=== PATIENT | female | born 1945 | race Caucasian/White ===

== ENCOUNTER 2018-01-11 09:11 | Emergency (ER) | payer MEDICARE ==
[~2018-01-11] VITALS: Ht 167.6 cm; Wt 131.4 kg
[~2018-01-11 09:11] MED LIST: AMLO10TA PO; ATOR-2 PO; CHOL100046 PO; IRON18TA PO; LISI10TA4 PO; METF500T7 PO; MULT-38 PO; [UNRECOGNIZED DRUG - OTHER] PO
[2018-01-11 09:54] LABS: BASOPHILS % (AUTO) 0.1 % (0-1); EOSINOPHILS # (AUTO) 0.1 X10'3 (0-0.9); EOSINOPHILS % (AUTO) 1.1 % (0-6); HEMATOCRIT 35.5 % (35.0-45.0); HEMOGLOBIN 11.8 g/dl (12.0-16.0); LYMPHOCYTES # (AUTO) 1.5 X10'3 (1.1-4.8); MEAN CORPUSCULAR HEMOGLOBIN 30.6 PG (27.0-31.0); MEAN CORPUSCULAR HGB CONC 33.2 % (33.0-36.5); MEAN CORPUSCULAR VOLUME 92.4 FL (78-98); MEAN PLATELET VOLUME 8.8 FL (7.4-10.4); MONOCYTES # (AUTO) 0.3 X10'3 (0-0.9); MONOCYTES % (AUTO) 2.3 % (2-12); NEUTROPHILS # (AUTO) 9.5 X10'3 (1.8-7.7); NEUTROPHILS % (AUTO) 83.5 % (42-75); PLATELET COUNT 216 X10'3 (140-440); RED BLOOD COUNT 3.85 X10'6 (4.20-5.60); WHITE BLOOD COUNT 11.3 X10'3 (4.5-11.0)
[2018-01-11 10:00] LABS: INR 1.4 INR; PROTHROMBIN TIME 14.4 SECONDS (9.0-12.0)
[2018-01-11 10:08] LABS: ALANINE AMINOTRANSFERASE 19 U/L (12-78); ALBUMIN 3.4 G/DL (3.4-5.0); ALBUMIN/GLOBULIN RATIO 0.9 (1.1-1.5); ALKALINE PHOSPHATASE 72 IU/L (46-116); ANION GAP 12 (8-16); ASPARTATE AMINO TRANSFERASE 17 U/L (10-37); BILIRUBIN,TOTAL 0.3 MG/DL (0.1-1.0); BLOOD UREA NITROGEN 15 MG/DL (7-18); BUN/CREATININE RATIO 11.8 (6.6-38.0); CALCIUM 9.3 MG/DL (8.5-10.1); CHLORIDE 106 MMOL/L (99-107); CREATININE 1.27 MG/DL (0.40-0.90); GLUCOSE 122 MG/DL (70-104); POTASSIUM 4.5 MMOL/L (3.5-5.1); SODIUM 143 MMOL/L (135-145); TOTAL CARBON DIOXIDE 25.4 MMOL/L (24-32); TOTAL PROTEIN 7.3 G/DL (6.4-8.2); eGFR 41 ML/MIN
[2018-01-11] MEDS ORDERED: ondansetron 4mg rapidly disintigrating tab PO ONE (10:20)
[2018-01-11 10:23] VITALS: BP 155/69
[2018-01-11] MEDS ORDERED: gabapentin 100mg capsule PO ONE (10:30)
[2018-01-11] MEDS ORDERED: GABA-530 PO (10:35)
== END 2018-01-11 11:33 | disposition home or self-care (01) ==
LOC: ER 09:11
DX: M54.6 Pain in thoracic spine (principal); F11.23 Opioid dependence with withdrawal; I11.0 Hypertensive heart disease with heart failure; I50.9 Heart failure, unspecified; J44.9 Chronic obstructive pulmonary disease, unspecified; E11.9 Type 2 diabetes mellitus without complications; Z88.8 Allergy status to other drugs, medicaments and biological substances; Z79.84 Long term (current) use of oral hypoglycemic drugs; Z79.899 Other long term (current) drug therapy
CPT/HCPCS: 36415; 80053; 85025; 85610; 93005; 99285

== ENCOUNTER → 2019-07-16 | Outpatient (CLI) | payer MEDICARE ==
[~2019-07-16] VITALS: Ht 165.1 cm; Wt 125.2 kg
[~2019-07-16] MED LIST changes: +GABA-530 PO; +METF500T20 PO; -METF500T7 PO; +albuterol 2.5 MG/3 ML nebule NEB PRN
== END | disposition home or self-care (01) ==
LOC: RT 09:54
PROVIDERS: ATTEND Internal Medicine Cardiovascular Disease
DX: R06.02 Shortness of breath (principal); I11.0 Hypertensive heart disease with heart failure; I50.9 Heart failure, unspecified; J44.9 Chronic obstructive pulmonary disease, unspecified; E11.9 Type 2 diabetes mellitus without complications; Z88.2 Allergy status to sulfonamides; Z87.891 Personal history of nicotine dependence
CPT/HCPCS: 94010; 94727; 94729; 94760

== ENCOUNTER 2019-07-20 10:17 | Day surgery (SDC) | payer MEDICARE ==
[2019-07-15 12:19] LABS: BASOPHILS # (AUTO) 0.1 X10'3 (0-0.2); BASOPHILS % (AUTO) 0.7 % (0-1); EOSINOPHILS # (AUTO) 0.3 X10'3 (0-0.9); EOSINOPHILS % (AUTO) 2.9 % (0-6); HEMATOCRIT 30.2 % (35.0-45.0); HEMOGLOBIN 10.2 g/dl (12.0-16.0); LYMPHOCYTES # (AUTO) 1.7 X10'3 (1.1-4.8); LYMPHOCYTES % (AUTO) 16.9 % (21-51); MEAN CORPUSCULAR HEMOGLOBIN 29.7 PG (27.0-31.0); MEAN CORPUSCULAR HGB CONC 33.7 g/dL (33.0-36.5); MEAN PLATELET VOLUME 8.4 FL (7.4-10.4); MONOCYTES # (AUTO) 0.6 X10'3 (0-0.9); MONOCYTES % (AUTO) 5.8 % (2-12); NEUTROPHILS # (AUTO) 7.2 X10'3 (1.8-7.7); NEUTROPHILS % (AUTO) 73.7 % (42-75); PLATELET COUNT 247 X10'3 (140-440); RED BLOOD COUNT 3.43 X10'6 (4.20-5.60); RED CELL DISTRIBUTION WIDTH 16.3 % (11.5-14.5); WHITE BLOOD COUNT 9.8 X10'3 (4.5-11.0)
[2019-07-15 12:27] LABS: ANION GAP 3 (8-16); BLOOD UREA NITROGEN 22 MG/DL (7-18); BUN/CREATININE RATIO 16.9 (6.6-38.0); CALCIUM 8.9 MG/DL (8.5-10.1); CHLORIDE 108 MMOL/L (99-107); GLUCOSE 106 MG/DL (70-104); POTASSIUM 4.7 MMOL/L (3.5-5.1); SODIUM 141 MMOL/L (135-145); TOTAL CARBON DIOXIDE 29.6 MMOL/L (24-32); eGFR 40 ML/MIN
[2019-07-15 12:32] LABS: PARTIAL THROMBOPLASTIN TIME 43 SECONDS (22-32)
[~2019-07-20] VITALS: Ht 160 cm; Wt 126.5 kg
[2019-07-20] VITALS (9 sets, daily range): BP systolic 137–166; BP diastolic 54–79
[~2019-07-20 10:17] MED LIST changes: -albuterol 2.5 MG/3 ML nebule NEB PRN
[2019-07-20] MEDS ORDERED: diphenhydrAMINE 25mg capsule PO PRN (11:10)
[2019-07-20] MEDS ORDERED: normal saline 1,000 ML IV SCH (11:10)
[2019-07-20] MEDS ORDERED: LORazepam 0.5 MG tablet PO PRN (11:10)
[2019-07-20] MEDS ORDERED: FURO40TA4 PO (11:49)
[2019-07-20] MEDS ORDERED: HYDR-4353 PO (11:49)
[2019-07-20] MEDS ORDERED: WARF10TA50 PO (11:49)
[2019-07-20] MEDS ORDERED: GABA-532 PO (11:49)
[2019-07-20] MEDS ORDERED: DOCU-261 PO (11:49)
[2019-07-20] MEDS ORDERED: OMEP40CA13 PO (11:49)
[2019-07-20] MEDS ORDERED: FERR-119 PO (11:49)
[2019-07-20] MEDS ORDERED: WARF5TAB PO (11:49)
[2019-07-20] MEDS ORDERED: INSU300I (11:49)
[2019-07-20] MEDS ORDERED: POTA20TA10 PO (11:49)
[2019-07-20] MEDS ORDERED: ENOX80SY7 SUBCUT (11:49)
[2019-07-20] MEDS ORDERED: GLIP5TAB13 PO (11:49)
[2019-07-20] MEDS ORDERED: fentaNYL/PF 50MCG/1 ML 2ML syringe ONE (12:17)
[2019-07-20] MEDS ORDERED: LIDOcaine 1% (10mg/ml)w/preservative injection 20ml MDV ONE (12:17)
[2019-07-20] MEDS ORDERED: midazolam 2 mg/2 ml injection ONE (12:17)
[2019-07-20] MEDS ORDERED: iohexol 350MG/ML 100ml bottle IV ONE (12:17)
[2019-07-20] MEDS ORDERED: HYDROcodone/acetaminophen 10/325mg tab PO PRN (13:35)
[2019-07-20] MEDS ORDERED: HYDROcodone/acetaminophen 5mg/325mg tablet PO PRN (13:35)
[2019-07-20] MEDS ORDERED: OXAZEpam 15mg capsule PO PRN (13:35)
[2019-07-20] MEDS ORDERED: proCHLORperazine 10 MG/2 ml inj IV PRN (13:35)
[2019-07-20] MEDS ORDERED: ondansetron/PF 4mg/2ml inj IV PRN (13:35)
== END 2019-07-20 15:35 | disposition home or self-care (01) ==
LOC: SSTAY O 10:17
PROVIDERS: ATTEND Internal Medicine Interventional Cardiology
DX: I35.0 Nonrheumatic aortic (valve) stenosis (principal); I25.10 Atherosclerotic heart disease of native coronary artery without angina pectoris; E11.22 Type 2 diabetes mellitus with diabetic chronic kidney disease; I13.0 Hypertensive heart and chronic kidney disease with heart failure and stage 1 through stage 4 chronic kidney disease, or unspecified chronic kidney disease; I50.9 Heart failure, unspecified; N18.9 Chronic kidney disease, unspecified; Z79.899 Other long term (current) drug therapy; Z79.84 Long term (current) use of oral hypoglycemic drugs; Z79.01 Long term (current) use of anticoagulants; Z88.8 Allergy status to other drugs, medicaments and biological substances
CPT/HCPCS: 36415; 80048; 82948; 85025; 85610; 85730; 93005; 93458; 99152; 99153; C1760; C1769; J1644; J2001; J2250; J3010; J7030; Q0163; Q9967; A4620; A6258

== ENCOUNTER 2019-10-09 14:20 | Inpatient (IN) | payer BC, MEDICAID ==
[~2019-10-09] VITALS: Ht 157.5 cm; Wt 125.0 kg
[~2019-10-09 14:20] MED LIST changes: +DOCU-261 PO; +ENOX80SY7 SUBCUT; +FERR-119 PO; +FURO40TA4 PO; -GABA-530 PO; +GABA-532 PO; +GLIP5TAB13 PO; +HYDR-4353 PO; +INSU300I; -IRON18TA PO; +OMEP40CA13 PO; +POTA20TA10 PO; +WARF10TA50 PO; +WARF5TAB PO
[2019-10-09] MEDS ORDERED: acetaminophen 325mg tablet PO STA (14:41)
[2019-10-09 15:13] LABS: BASOPHILS % (AUTO) 0.2 % (0-1); EOSINOPHILS % (AUTO) 0.1 % (0-6); HEMATOCRIT 27.8 % (35.0-45.0); HEMOGLOBIN 9.2 g/dl (12.0-16.0); LYMPHOCYTES # (AUTO) 0.5 X10'3 (1.1-4.8); LYMPHOCYTES % (AUTO) 4.3 % (21-51); MEAN CORPUSCULAR HEMOGLOBIN 29.8 PG (27.0-31.0); MEAN CORPUSCULAR VOLUME 90.5 FL (78-98); MEAN PLATELET VOLUME 8.4 FL (7.4-10.4); MONOCYTES # (AUTO) 0.4 X10'3 (0-0.9); MONOCYTES % (AUTO) 3.3 % (2-12); NEUTROPHILS # (AUTO) 11.1 X10'3 (1.8-7.7); NEUTROPHILS % (AUTO) 92.1 % (42-75); PLATELET COUNT 205 X10'3 (140-440); RED BLOOD COUNT 3.07 X10'6 (4.20-5.60); RED CELL DISTRIBUTION WIDTH 16.6 % (11.5-14.5); WHITE BLOOD COUNT 12.1 X10'3 (4.5-11.0)
[2019-10-09] MEDS ORDERED: normal saline 1000ML IV soln IVB ONE (15:20)
[2019-10-09] MEDS ORDERED: levoFLOXACIN-Levaquin 750MG/D5 150 ML IV ONE (15:20)
[2019-10-09 15:28] LABS: ALANINE AMINOTRANSFERASE 18 U/L (12-78); ALBUMIN 2.6 G/DL (3.4-5.0); ALBUMIN/GLOBULIN RATIO 0.6 (1.1-1.5); ALKALINE PHOSPHATASE 95 IU/L (46-116); ANION GAP 4 (8-16); ASPARTATE AMINO TRANSFERASE 23 U/L (10-37); BILIRUBIN,TOTAL 0.7 MG/DL (0.1-1.0); BLOOD UREA NITROGEN 26 MG/DL (7-18); BUN/CREATININE RATIO 15.9 (6.6-38.0); CHLORIDE 101 MMOL/L (99-107); CREATININE 1.64 MG/DL (0.40-0.90); GLUCOSE 130 MG/DL (70-104); MAGNESIUM 1.8 MG/DL (1.5-2.4); POTASSIUM 4.8 MMOL/L (3.5-5.1); SODIUM 136 MMOL/L (135-145); TOTAL PROTEIN 6.8 G/DL (6.4-8.2); eGFR 31 ML/MIN
[2019-10-09 16:01] LABS: PARTIAL THROMBOPLASTIN TIME 38 SECONDS (22-32)
[2019-10-09 16:43] LABS: CLARITY,URINE SLIGHTLY CLOUDY (Clear); COLOR,URINE YELLOW (Yellow); GLUCOSE, URINE NEGATIVE (Neg); KETONES,URINE NEGATIVE (Neg); LEUKOCYTE ESTERASE ,URINE NEGATIVE (Neg); NITRITES, URINE NEGATIVE (Neg); OCCULT BLOOD,URINE LARGE (Neg); PH,URINE 6.5 (4.8-8.0); PROTEIN,URINE 100 mg/dl (Neg); UA COLLECTION TYPE VOIDED
--- NOTE | 2019-10-09 16:43 | NUR ---
DR. LINDSEY CALLED PT'S SON AND TOLD HIM WE WERE TESTING FOR THE COVID 19 AND TO GO HOME AND SELF QUARANTINE UNTIL HER COVID 19 TEST CAME BACK. HE ALSO TOLD HIM SHE WOULD NOT BE ALLOWED A VISITOR WHILE WE WATED FOR TEST.
--- NOTE | 2019-10-09 16:46 | NUR ---
SON'S PHONE NUMBER IS [phone]
[2019-10-09 16:50] LABS: SQUAMOUS EPITHELIAL CELL,UR MODERATE /LPF (FEW)
[2019-10-09 16:51] LABS: RBC,URINE TNTC /HPF (0-2)
[2019-10-09 16:53] LABS: BACTERIA,URINE FEW /HPF (Neg); WBC,URINE 0-4 /HPF (0-4)
[2019-10-09] MEDS ORDERED: potassium CL 10mEq/100ml bag 100 ML IV PRN ×2 (17:10)
[2019-10-09] MEDS ORDERED: potassium Cl 20 mEq SR tablet PO PRN ×2 (17:10)
[2019-10-09] MEDS ORDERED: morphine 2 MG/ML inj. syringe IV PRN (17:10)
[2019-10-09] MEDS ORDERED: docusate sod 100mg capsule PO PRN (17:10)
[2019-10-09] MEDS ORDERED: magnesium Cl slow-release 64mg tablet PO PRN (17:10)
[2019-10-09] MEDS ORDERED: acetaminophen 325mg tablet PO PRN ×2 (17:10)
[2019-10-09] MEDS ORDERED: magnesium 4gm in 100ml NS 100 ML IV PRN (17:10)
[2019-10-09] MEDS ORDERED: magnesium 2GM in 50ml NS 50 ML IV PRN (17:10)
[2019-10-09] MEDS ORDERED: dextrose ORAL solution 15 GM/59 ML bottle PO PRN ×2 (17:30)
[2019-10-09] MEDS ORDERED: MESSAGE TO PHARMACY PO ONE (17:30)
[2019-10-09] MEDS ORDERED: dextrose 50%-water 50ml dispensing syringe IV PRN ×2 (17:30)
[2019-10-09] MEDS ORDERED: glucagon, human recombinant 1mg kit SUBCUT PRN (17:30)
[2019-10-09] MEDS ORDERED: albuterol 2.5 MG/3 ML nebule NEB PRN (17:35)
[2019-10-09] MEDS ORDERED: FERR-119 PO (18:29)
[2019-10-09] MEDS ORDERED: LISI-600 PO (18:29)
[2019-10-09] MEDS ORDERED: DILT240C52 PO (18:29)
--- NOTE | 2019-10-09 18:32 | NUR ---
Three are some inconsistency to pt's med list compared to what she has picked up at pharmacy. Will call son to verify changes.
[2019-10-09] MEDS ORDERED: WARF10TA50 PO (18:41)
--- NOTE | 2019-10-09 18:45 | NUR ---
Received report from Gladys SHULTZ RN. had the oportunity to ask questions. pt is R/O covid 19 and we will be using full airborne precautions. vitals are stable.
[2019-10-09] MEDS: normal saline 1000ml 1,000 ML IV SCH (19:00)
[2019-10-09 19:30] VITALS: BP 163/67
[2019-10-09] MEDS: K and/or MAG REPLACEMENT MC SCH (20:00)
[2019-10-09] MEDS: HYDROcodone/acetaminophen 5mg/325mg tablet PO PRN (20:00)
[2019-10-09] MEDS: heparin, porcine 5000 units/ml vial SQ SCH (20:01)
[2019-10-09] MEDS: ondansetron/PF 4mg/2ml inj IV PRN (20:03)
[2019-10-09] MEDS ORDERED: temazepam 15mg capsule PO PRN (21:00)
[2019-10-09] MEDS: insulin glargine (Lantus) pen - multi-dose SQ SCH (21:00)
--- NOTE | 2019-10-09 21:58 | NUR ---
NS HELD pt has a Hx of CHF, notified MD Zee to question 100ml/hr NS for this pt with Hx of CHF. agrees that NS would be illadvised. ROMANA held.
[2019-10-09 22:00] VITALS: BP 163/68
[2019-10-10] MEDS ORDERED: metoprolol tartrate 50mg tablet PO ONE (01:00)
[2019-10-10] MEDS ORDERED: metoprolol tartrate 1mg/ml inj IV ONE (01:00)
--- NOTE | 2019-10-10 01:54 | NUR ---
Called by Jaison CHILD, to trouble shoot pt's O2 and desaturations. RN stated the pt did have decreased wheezing and was agreeable to give pt svn, per new policy regarding COVID 19 airborne precautions. Jaison CHILD instructed on how to administer svn, svn set up with filter by RT. Addendum: 10/10/19 at 0157 by Cherrie Freeman RT Amended: Links added.
[2019-10-10 02:00] VITALS: BP 172/72
[2019-10-10] MEDS: normal saline 1000ml 1,000 ML IV SCH ×2 (03:09→15:08)
[2019-10-10] MEDS: ondansetron/PF 4mg/2ml inj IV PRN ×2 (03:41→15:06)
[2019-10-10 06:00] VITALS: BP 136/100
[2019-10-10 06:14] LABS: BASOPHILS % (AUTO) 0.2 % (0-1); EOSINOPHILS % (AUTO) 0 % (0-6); MONOCYTES # (AUTO) 0.5 X10'3 (0-0.9); NEUTROPHILS % (AUTO) 91.3 % (42-75)
[2019-10-10 06:16] LABS: HEMATOCRIT 29.6 % (35.0-45.0); HEMOGLOBIN 9.7 g/dl (12.0-16.0); LYMPHOCYTES # (AUTO) 0.7 X10'3 (1.1-4.8); LYMPHOCYTES % (AUTO) 5.1 % (21-51); MEAN CORPUSCULAR HEMOGLOBIN 29.9 PG (27.0-31.0); MEAN CORPUSCULAR HGB CONC 32.9 g/dL (33.0-36.5); MEAN PLATELET VOLUME 9.4 FL (7.4-10.4); MONOCYTES % (AUTO) 3.4 % (2-12); NEUTROPHILS # (AUTO) 12.7 X10'3 (1.8-7.7); PLATELET COUNT 214 X10'3 (140-440); RED BLOOD COUNT 3.25 X10'6 (4.20-5.60); RED CELL DISTRIBUTION WIDTH 16.3 % (11.5-14.5); WHITE BLOOD COUNT 13.9 X10'3 (4.5-11.0)
[2019-10-10 06:27] LABS: ALBUMIN 2.4 G/DL (3.4-5.0); ANION GAP 8 (8-16); BLOOD UREA NITROGEN 19 MG/DL (7-18); BUN/CREATININE RATIO 13.7 (6.6-38.0); CALCIUM 9.6 MG/DL (8.5-10.1); CHLORIDE 102 MMOL/L (99-107); CREATININE 1.39 MG/DL (0.40-0.90); GLUCOSE 178 MG/DL (70-104); MAGNESIUM 1.9 MG/DL (1.5-2.4); POTASSIUM 4.9 MMOL/L (3.5-5.1); SODIUM 139 MMOL/L (135-145); TOTAL CARBON DIOXIDE 29.2 MMOL/L (24-32); eGFR 37 ML/MIN
--- NOTE | 2019-10-10 06:34 | NUR ---
Problems reprioritized. Patient report given, questions answered & plan of care reviewed with Yenifer Eid RN.
[2019-10-10 07:05] LABS: ANISOCYTOSIS 1+; PLATELET ESTIMATE NORMAL; POLYCHROMASIA 1+; TOTAL CELLS COUNTED 100
--- NOTE | 2019-10-10 07:05 | NUR ---
Patient in room PCU 3008. I have received report from Jaison RN and had the opportunity to ask questions and assume patient care.
[2019-10-10] MEDS: heparin, porcine 5000 units/ml vial SQ SCH ×2 (07:37→19:33)
[2019-10-10] MEDS: HYDROcodone/acetaminophen 5mg/325mg tablet PO PRN ×3 (07:45→20:42)
[2019-10-10] MEDS ORDERED: azithromycin/NS 500mg/250ml 250 ML IV SCH (08:00)
[2019-10-10] MEDS ORDERED: CefTRIAXone 2gm/D5W 50ml 50 ML IV SCH (08:00)
[2019-10-10] MEDS: K and/or MAG REPLACEMENT MC SCH ×2 (08:00→19:57)
[2019-10-10 11:00] VITALS: BP 141/98
[2019-10-10] MEDS: insulin Lispro (HumaLOG) vial - multi-dose SQ SCH ×2 (12:52→19:54)
[2019-10-10] MEDS: diltiazem CD 120mg capsule (once-daily) PO SCH (12:58)
[2019-10-10] MEDS: amLODIPine 5mg tablet PO SCH (12:58)
[2019-10-10] MEDS: gabapentin 300mg capsule PO SCH ×2 (12:58→20:49)
--- NOTE | 2019-10-10 14:08 | NUR ---
page sent PAGER ID: [phone] MESSAGE: [phone] Coni Florian - Severely constipation, rectal vaut is full of stool and pt. c/o severe rectal pain. Yenifer CHILD [phone]
[2019-10-10 15:00] VITALS: BP 188/102
[2019-10-10] MEDS ORDERED: mineral oil 133ml enema RC ONE (15:00)
--- NOTE | 2019-10-10 15:30 | NUR ---
PAGER ID: [phone] MESSAGE: [phone] Coni Florian - Blood pressure is 188/102. Yenifer CHILD [id number]
--- NOTE | 2019-10-10 15:40 | NUR ---
PAGER ID: [phone] MESSAGE: [phone] Coni Florian - Pharmacy called regarding hydralazine order and stated 25 mg is too high for IV. Please call Yenifer [phone]
--- NOTE | 2019-10-10 15:59 | NUR ---
Dr. Ozuna called, clarification for Hydralazine order. Hydralazine 25mg PO q6 hours PRN for HTN give for SBP >160
--- NOTE | 2019-10-10 16:00 | NUR ---
Attempted to notify Son Kodi regarding Covid results, no voicemail has been set up. I called several times, no return call yet.
[2019-10-10] MEDS: hyDRALAzine 10mg tablet PO PRN (16:13)
[2019-10-10] MEDS: cefepime 1GM in D5W 50mL 50 ML IV SCH (17:44)
--- NOTE | 2019-10-10 17:56 | NUR ---
Patient desated when ambulating to the BR to 85%, pt did not recover quickly. Dr. Mcgregor at bedside. Oxygen increased to 5L via NC and she has been sating around 90-92%. Pt. denies feeling SOB.
--- NOTE | 2019-10-10 18:30 | NUR ---
Patient in room PCU 3008. I have received report from DANYELL Street and had the opportunity to ask questions and assume patient care.
--- NOTE | 2019-10-10 18:49 | NUR ---
Problems reprioritized. Patient report given, questions answered & plan of care reviewed with Damaso CHILD.
[2019-10-10 19:00] VITALS: BP 170/65
--- NOTE | 2019-10-10 19:00 | NUR ---
Patient oxygen saturation on 5L nasal cannula in low 80's. Patient's skin ashen and dusky. Quite somnolent- A&O x4; Still able to respond to questions and follow commands. Patient placed on non-rebreather at 10L and titrated down to 8L with oxygen saturation maintaining at 94-95%. Verified change with Respiratory staff. Will continue to monitor closely.
[2019-10-10] MEDS: hydroxychloroquine 200mg tablet PO SCH (19:29)
[2019-10-10] MEDS: ferrous sulfate 325mg tablet PO SCH (19:29)
[2019-10-10] MEDS: lactobacillus rhamnosus 10,000 MMU CELLS/CAPSULE PO SCH (19:30)
[2019-10-10] MEDS ORDERED: ALBUTEROL INHALER 1 PUFF/90 MCG INHALER IH PRN (19:35)
--- NOTE | 2019-10-10 19:52 | NUR ---
PAGER ID: [phone] MESSAGE: [phone]. [phone]. DANYELL Petit for patient in 3008 COVID-19+. Admit 10/08 for SOB and bilat PNA. SYS 170's and last PRN of 25 mg PO hydralazine for SBP >160 admin 3 hours ago. Do you want me to give dose early? or something different??
--- NOTE | 2019-10-10 20:00 | NUR ---
Spoke to Dr. King in ER regarding patient and plan of action regarding PPE with son. Also discussed systolic BP 170's with HR 87. And last administration of 25 mg PO hydralazine q6h for SYS >160 at 1416. Aware of no response from Dr. Murrell and no new orders received at this time. Will continue to monitor closely.
[2019-10-10] MEDS: sennosides/docusate sodium tablet PO SCH (20:51)
[2019-10-10] MEDS: insulin glargine (Lantus) pen - multi-dose SQ SCH (21:00)
--- NOTE | 2019-10-10 22:05 | NUR ---
Son and ED RNJef left floor in newly donned PPE, faceshields and facemasks exempt per Dr. King in ER. 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 Advised son if any supplies are needed or necessary, to phone family or friends and leave food and supplies on door step as to not expose if potentially a carrier of COVID-19. Will continue to educate patient and family daily and PRN.
--- NOTE | 2019-10-10 22:24 | NUR ---
Current time 2223 and still no response from night time hospitalist, Dr. Murrell regarding patient systolic blood pressure of now 180. Will administer 25 mg PO hydralazine q6hr.
--- NOTE | 2019-10-10 22:30 | NUR ---
DNR band placed on patient per MD orders and patient's specific will not to live. Patient stated, "I do not want to be ventilated."
[2019-10-10 22:49] VITALS: BP 146/65
--- NOTE | 2019-10-10 23:22 | NUR ---
Patient now on 5L simple face mask. Tolerating well. Will continue to monitor closely.
[2019-10-11] VITALS (7 sets, daily range): BP systolic 106–146; BP diastolic 47–69
[2019-10-11] MEDS: cefepime 1GM in D5W 50mL 50 ML IV SCH ×3 (00:03→16:26)
[2019-10-11] MEDS: hyDRALAzine 10mg tablet PO PRN (01:30)
--- NOTE | 2019-10-11 02:00 | NUR ---
Patient on 6L simple face mask sating at 93%. Will continue to monitor closely.
[2019-10-11 02:10] LABS: BASOPHILS % (AUTO) 0.2 % (0-1); EOSINOPHILS % (AUTO) 0.1 % (0-6); HEMATOCRIT 28.3 % (35.0-45.0); HEMOGLOBIN 9.2 g/dl (12.0-16.0); LYMPHOCYTES # (AUTO) 0.8 X10'3 (1.1-4.8); LYMPHOCYTES % (AUTO) 5.8 % (21-51); MEAN CORPUSCULAR HEMOGLOBIN 29.7 PG (27.0-31.0); MEAN CORPUSCULAR HGB CONC 32.6 g/dL (33.0-36.5); MEAN CORPUSCULAR VOLUME 91.2 FL (78-98); MEAN PLATELET VOLUME 8.9 FL (7.4-10.4); MONOCYTES # (AUTO) 0.6 X10'3 (0-0.9); MONOCYTES % (AUTO) 4.2 % (2-12); NEUTROPHILS # (AUTO) 12.2 X10'3 (1.8-7.7); NEUTROPHILS % (AUTO) 89.7 % (42-75); PLATELET COUNT 257 X10'3 (140-440); RED BLOOD COUNT 3.11 X10'6 (4.20-5.60); RED CELL DISTRIBUTION WIDTH 16.5 % (11.5-14.5); WHITE BLOOD COUNT 13.6 X10'3 (4.5-11.0)
[2019-10-11 02:13] LABS: ALBUMIN 2.3 G/DL (3.4-5.0); ANION GAP 3 (8-16); BLOOD UREA NITROGEN 21 MG/DL (7-18); BUN/CREATININE RATIO 15.6 (6.6-38.0); CALCIUM 9.6 MG/DL (8.5-10.1); CHLORIDE 102 MMOL/L (99-107); CREATININE 1.35 MG/DL (0.40-0.90); GLUCOSE 184 MG/DL (70-104); POTASSIUM 4.2 MMOL/L (3.5-5.1); SODIUM 137 MMOL/L (135-145); TOTAL CARBON DIOXIDE 31.9 MMOL/L (24-32); eGFR 38 ML/MIN
--- NOTE | 2019-10-11 05:34 | NUR ---
Patient placed on 10L NC sating at 89%. Had episode of emesis light greenish white in color. Patient able to cough up scant white mucous-like sputum. RR increased to 30
--- NOTE | 2019-10-11 06:33 | NUR ---
Patient on 6L Simple face mask. Sating at 92%. Will continue to monitor closely.
--- NOTE | 2019-10-11 06:34 | NUR ---
Problems reprioritized. Patient report given, questions answered & plan of care reviewed with DANYELL Street.
[2019-10-11] MEDS: lactobacillus rhamnosus 10,000 MMU CELLS/CAPSULE PO SCH ×2 (07:32→19:31)
[2019-10-11] MEDS: pantoprazole 40mg Tablet.DR PO SCH (07:32)
[2019-10-11] MEDS: docusate sod 100mg capsule PO SCH (07:32)
[2019-10-11] MEDS: hydroxychloroquine 200mg tablet PO SCH ×2 (07:33→19:31)
[2019-10-11] MEDS: gabapentin 300mg capsule PO SCH ×3 (07:33→21:19)
[2019-10-11] MEDS: lisinopril 20mg tablet PO SCH (07:33)
[2019-10-11] MEDS: sennosides/docusate sodium tablet PO SCH ×2 (07:33→19:32)
[2019-10-11] MEDS: amLODIPine 5mg tablet PO SCH (07:33)
[2019-10-11] MEDS: diltiazem CD 120mg capsule (once-daily) PO SCH (07:34)
[2019-10-11] MEDS: heparin, porcine 5000 units/ml vial SQ SCH ×2 (07:34→19:30)
[2019-10-11] MEDS: atorvastatin 20mg tablet PO SCH (07:34)
[2019-10-11] MEDS: ferrous sulfate 325mg tablet PO SCH ×2 (07:34→19:32)
[2019-10-11] MEDS: K and/or MAG REPLACEMENT MC SCH ×2 (07:51→20:00)
[2019-10-11] MEDS ORDERED: warfarin 10mg tablet PO SCH (08:00)
[2019-10-11] MEDS: insulin Lispro (HumaLOG) vial - multi-dose SQ SCH ×3 (08:48→20:55)
[2019-10-11] MEDS: ondansetron/PF 4mg/2ml inj IV PRN (09:39)
--- NOTE | 2019-10-11 09:57 | NUR ---
Pt. desated after transfer from chair to bed. Saturations noted to be around 82-86%. Patient continues to deny dyspnea but clearly her WOB has increased AEB increased RR. Pt. requesting to watch t.v. Pt. did not recover quickly, non rebreather applied at 15L, Saturations 94-96%, Titrated oxygen to 12L non-rebreather. Saturations 93-95%. Will continue to try and titrate her down. HR 90. Pt. has a low grade temp of 99.0. Noted more sputum production today than prior day. Encouraged C&DB. Pt. stated, "I dont feel wheezy or SOB I don't need my inhaler." LS with slight wheezing and diminshed t/o. Will continue to monitor.
--- NOTE | 2019-10-11 11:00 | NUR ---
Pt's saturations have been maintaining she was titrated back to simple face mask at 5L/min.
[2019-10-11] MEDS: HYDROcodone/acetaminophen 5mg/325mg tablet PO PRN ×2 (11:45→19:31)
--- NOTE | 2019-10-11 11:48 | NUR ---
Pt's saturations dropped to low 80's again requiring non rebreather mask at 10 L/min. Will continue to monitor patient closely. Pt. remains alert and responsive to verbal stimuli. Will monitor for any changes.
--- NOTE | 2019-10-11 11:58 | NUR ---
Despite lower oxygen saturations at times, the patient remains alert. Pt. currently calling family members to check in. RR 21, pt. denies SOB. Vital signs obtained. Temp is 99.0 currently. Will continue to monitor.
--- NOTE | 2019-10-11 13:33 | NUR ---
Pt. is now on 10L simple face mask and sating between 91-92%. Pt. is watching Dr. Fernandez and offers no complaints at this time. Will continue to monitor.
--- NOTE | 2019-10-11 14:50 | NUR ---
Patients oxygen saturations have been stable on 10L simple face mask, decreased oxygen to 8L via simple face mask. Will monitor for any changes.
--- NOTE | 2019-10-11 15:14 | NUR ---
Pt. unable to tolerate 8L simple face mask during transfer back to bed. Spoke with patient about staying in the bed for the remainder of the shift. Pt. was transferred back to Non rebreather at 15L/Min temporarily. Will titrate back to face mask once patient recovers from transfer
--- NOTE | 2019-10-11 15:45 | NUR ---
pt. has been titrated back to 8L simple face mask and is sating between 92-95%. Pt. is resting in no distress at this time. RR 20, even and unlabored at this time.
--- NOTE | 2019-10-11 16:00 | NUR ---
Attempted to dart patient; She answered some questions and then stated, "I don't know, I don't want to answer all these questions." Will attempt again tomorrow and also notify NOC nurse if she is able.
--- NOTE | 2019-10-11 16:21 | NUR ---
Paged Dr. Alvarado: PAGER ID: [phone] MESSAGE: RE: Coni Florian [phone]. Patient complaining of generalized pain. PRN Bacliff 5 order is for Q8H. Is it possible to change the frequency? Patient states she takes 2 tabs of Bacliff q6h at home. Thank you, Azucena [phone]
--- NOTE | 2019-10-11 16:59 | NUR ---
racking technician reported the patients saturations dropped to 81%. Upon assessment of the patient she appears dyspneic and stated, "It's because I removed my mask to talk on the phone." Explained importance of keeping oxygen in place at this time and that she is dependent on oxygen at this time. Pt. verbalized understanding. Pt. did not recover quickly, therefore, a non rebreather was placed on the patient again. Pt. requiring 12/L min at this time. Staying with patient to ensure safety. WOB has slightly decreased. RR 22. Oxygen saturation is 92%. Will continue to monitor closely.
--- NOTE | 2019-10-11 17:09 | NUR ---
Pt. remains between 91-93% on 12/L via non rebreather. Verified with senior telecommunications technician that she is also seeing a good pleth and these numbers were confirmed with her. Pt. is not safe to eat dinner at this time as she is a mouth breather and can not tolerate nasal cannula. Pt. verbalized understanding and stated she was not hungry anyway. Pt. searching for "Party Plan Sales Director April." Pt's RR is 21 at this time. Will continue to monitor closely. DB&C is encouraged as well.
--- NOTE | 2019-10-11 17:26 | NUR ---
Pt. is not tolerating 10L via simple face mask, oxygen saturations ranging from 88-91%. Pt. has been returned to the non rebreather @ 10/L per min. MD is aware of her oxygen fluctuations and nursings interventions. Pt. has a poor prognosis per MD. Will continue to monitor patient closely. RR 22. Pt. responds to verbal stimuli and answers questions appropriately.
--- NOTE | 2019-10-11 17:32 | NUR ---
Patient is currently sating between 91-93% on 10/L via non rebreather. Pt. continues to respond approriately. Nurse educated on repositioning and DB&C. Pt. verbalized understanding and demonstrated for nursing. RR currently 21. Pt. is currently speaking on the phone to a family member with mask in place. Will report to oncoming nurse the changes throughout the day and her current status and oxygen requirements.
--- NOTE | 2019-10-11 17:50 | NUR ---
Called Pt's Son to notify him of the oxygen requirements that his mom needs and the changes in her condition. Pt's son did not answer but I was able to reach the patients daughter Azucena; She stated the Pt's son is quarantined r/t testing positive for Covid19. Azucena stated that if the patient is not sustaining her oxygen saturations or has any further changes to call her back and she will come see her. notified of the changes as well.
--- NOTE | 2019-10-11 17:57 | NUR ---
PAGER ID: [phone] MESSAGE: [phone] Coni Florian - Oxygen demands have increased. Requiring non rebreather continuously and cannot tolerate activity or dinner. Family made aware. Yenifer CHILD [phone]
--- NOTE | 2019-10-11 18:04 | NUR ---
Reassessment, Pt's oxygen continues to be 91-92% on 10/L non rebreather. Offers no complaints during last rounds. Informed patient that her family had been notified of her condition. Pt. continues to respond to verbal stimuli and answers questions appropriately. Will report to oncoming shift.
--- NOTE | 2019-10-11 18:49 | NUR ---
Problems reprioritized. Patient report given, questions answered & plan of care reviewed with Damaso CHILD.
--- NOTE | 2019-10-11 18:58 | NUR ---
Patient in room PCU 3008. I have received report from DANYELL Street and had the opportunity to ask questions and assume patient care.
--- NOTE | 2019-10-11 20:09 | NUR ---
Patient on 15L non-rebreather sating at 85-89%. call manager hospitalist, Dr. Mancini notified via telephone. Will notify when oxygen saturation drops below 80%. Will continue to monitor closely.
[2019-10-11] MEDS: insulin glargine (Lantus) pen - multi-dose SQ SCH (21:00)
[2019-10-12 02:00] VITALS: BP 113/57
[2019-10-12 03:54] LABS: BASOPHILS % (AUTO) 0.3 % (0-1); EOSINOPHILS % (AUTO) 0.3 % (0-6); HEMATOCRIT 25.4 % (35.0-45.0); HEMOGLOBIN 8.3 g/dl (12.0-16.0); LYMPHOCYTES # (AUTO) 0.9 X10'3 (1.1-4.8); LYMPHOCYTES % (AUTO) 6.7 % (21-51); MEAN CORPUSCULAR HEMOGLOBIN 29.9 PG (27.0-31.0); MEAN CORPUSCULAR HGB CONC 32.6 g/dL (33.0-36.5); MEAN CORPUSCULAR VOLUME 91.8 FL (78-98); MEAN PLATELET VOLUME 9.1 FL (7.4-10.4); MONOCYTES # (AUTO) 0.5 X10'3 (0-0.9); NEUTROPHILS # (AUTO) 11.3 X10'3 (1.8-7.7); NEUTROPHILS % (AUTO) 88.7 % (42-75); PLATELET COUNT 250 X10'3 (140-440); RED BLOOD COUNT 2.77 X10'6 (4.20-5.60); RED CELL DISTRIBUTION WIDTH 17.3 % (11.5-14.5); WHITE BLOOD COUNT 12.7 X10'3 (4.5-11.0)
[2019-10-12 04:19] LABS: ALANINE AMINOTRANSFERASE 24 U/L (12-78); ALBUMIN 2.1 G/DL (3.4-5.0); ALBUMIN/GLOBULIN RATIO 0.5 (1.1-1.5); ALKALINE PHOSPHATASE 101 IU/L (46-116); ANION GAP 6 (8-16); ASPARTATE AMINO TRANSFERASE 47 U/L (10-37); BILIRUBIN,TOTAL 0.6 MG/DL (0.1-1.0); BLOOD UREA NITROGEN 32 MG/DL (7-18); BUN/CREATININE RATIO 15.8 (6.6-38.0); CALCIUM 9.3 MG/DL (8.5-10.1); CHLORIDE 102 MMOL/L (99-107); CREATININE 2.02 MG/DL (0.40-0.90); GLUCOSE 167 MG/DL (70-104); POTASSIUM 4.4 MMOL/L (3.5-5.1); SODIUM 138 MMOL/L (135-145); TOTAL PROTEIN 6.6 G/DL (6.4-8.2); eGFR 24 ML/MIN
--- NOTE | 2019-10-12 04:30 | NUR ---
Notified charge account identification clerk of change in HR and O2 sat of 85 and 85%. Aware of frequent episodes of bigeminy and frequent PVC's. Patient still remains on 15L non-rebreather. Kodi, son, notified of change. Spoke with Dr. Mcgregor and was informed that per [place] [facility], Son will not be allowed to visit mother since testing positive for COVID-19. Daughter, Azucena, contacted and notified of change. Per Dr. Mcgregor, will have patient enter through ER and receive test for COVID-19 before coming up to floor. Will don appropriate PPE in accordance with [facility] protocol. Daughter ETA to hospital 0450. Charge Nurse and household refrigeration mechanic aware.
--- NOTE | 2019-10-12 05:15 | NUR ---
Daughter, Azucena, in room with appropriate PPE. Dr. Santoro up to floor. ER staff did not obtain swab for COVID-19 R/O. Performed swab on patient and handed to Dr. Santoro per his request.
[2019-10-12 05:25] VITALS: BP 126/51
--- NOTE | 2019-10-12 06:32 | NUR ---
Patient in room PCU 3008. I have received report from Damaso CHILD and had the opportunity to ask questions and assume patient care.
--- NOTE | 2019-10-12 06:32 | NUR ---
Received report that the patient was unable to get off Non re-breather overnight. Called RT to ensure that nursing has done everything possible for this patient and that interventions are appropriate. RT confirmed that nursing interventions are appropriate recommendations. Will speak with MD regarding patient status and if the patient is a candidate for comfort care at this point. Daughter is in at bedside.
--- NOTE | 2019-10-12 06:51 | NUR ---
Problems reprioritized. Patient report given, questions answered & plan of care reviewed with DANYELL Street.
[2019-10-12 07:00] VITALS: BP 142/56
[2019-10-12] MEDS: cefepime 1GM in D5W 50mL 50 ML IV SCH ×2 (07:54)
[2019-10-12] MEDS: heparin, porcine 5000 units/ml vial SQ SCH (07:56)
[2019-10-12] MEDS: pantoprazole 40mg Tablet.DR PO SCH (07:56)
[2019-10-12] MEDS: lactobacillus rhamnosus 10,000 MMU CELLS/CAPSULE PO SCH (07:56)
[2019-10-12] MEDS: amLODIPine 5mg tablet PO SCH (07:56)
[2019-10-12] MEDS: gabapentin 300mg capsule PO SCH (07:56)
[2019-10-12] MEDS: hydroxychloroquine 200mg tablet PO SCH (07:57)
[2019-10-12] MEDS: docusate sod 100mg capsule PO SCH (07:57)
[2019-10-12] MEDS: atorvastatin 20mg tablet PO SCH (07:57)
[2019-10-12] MEDS: ferrous sulfate 325mg tablet PO SCH (07:57)
[2019-10-12] MEDS: sennosides/docusate sodium tablet PO SCH (07:57)
[2019-10-12] MEDS: lisinopril 20mg tablet PO SCH (07:57)
[2019-10-12] MEDS: diltiazem CD 120mg capsule (once-daily) PO SCH (07:58)
[2019-10-12] MEDS: K and/or MAG REPLACEMENT MC SCH (08:00)
--- NOTE | 2019-10-12 08:24 | NUR ---
PAGER ID: [phone] MESSAGE: [phone] Coni Florian Pt. is sating in the 70's on 15L non rebreather. Daughter is at bedside and would like to speak with you about possible comfort care. Please call as soon as available. Yenifer CHILD [phone]
--- NOTE | 2019-10-12 08:42 | NUR ---
Spoke with Dr. Mcgregor regarding condition and Dr. Alvarado - Dr. Alvarado stated that he would call into the patients room and speak with her and her daughter. He stated he was not able to go into the room at this time. Dr. Mcgregor stated he is in the clinic right now but thought that she is a candidate for comfort care. Dr. Mcgregor stated her prognosis is very poor and thought that Morphine would be beneficial for her breathing. Received orders to administer Morphine 2 mg IV q 2 hrs PRN for dyspnea.
[2019-10-12] MEDS: morphine 2 MG/ML inj. syringe IV PRN ×2 (09:07→12:35)
--- NOTE | 2019-10-12 09:13 | NUR ---
Patient was given Morphine 2 mg IV for dyspnea. Pt's saturations are currently 88% on 15L non rebreather mask. RR 24. Will continue to monitor patient closely.
--- NOTE | 2019-10-12 09:19 | NUR ---
Dr. Alvarado had an extensive conversation with pt and daughter Azucena present at bedside. No further orders given at this time. Will continue to monitor patient status. Nursing continues to reposition, encourage coughing and deep breathing. Will continue current interventions as advised by Dr. Mcgregor and Dr. Alvarado. Pt's mentation remains unchanged but she is fatigued.
[2019-10-12] MEDS ORDERED: hydrALAZINE 25 MG tablet PO PRN (10:35)
[2019-10-12 11:00] VITALS: BP 157/57
[2019-10-12] MEDS ORDERED: morphine 10mg/0.5ml (conc. morphine) oral syringe PO PRN (11:15)
[2019-10-12] MEDS ORDERED: LORazepam 2 mg/ml vial IV PRN (11:15)
--- NOTE | 2019-10-12 11:38 | NUR ---
Noted that patient's code status has been made DNR with comfort care. [facility] 10/09. Will continue to follow per LOS measures. Recommendations: 1) Bowel care per comfort care measures Addendum: 10/12/19 at [address] Amended: Links added.
--- NOTE | 2019-10-12 12:28 | NUR ---
Re-assessment: Patient is groaning and dyspneic and having coughing spells. RR 24. Sp02 61%. Patient has an order for comfort measures at this time. Pt. opening eyes with tactile stimuli only but is in distress AEB facial grimacing and moaning. Pt. is still tachypnic. Morphine administered. Will monitor for effectiveness of medication.
--- NOTE | 2019-10-12 12:43 | NUR ---
Patient repositioned for comfort with supportive pillows. Accu checks have been DC'd. Patient is still sating in high 60's-low 70's. Will continue to monitor status closely and update family with any changes.
--- NOTE | 2019-10-12 13:59 | NUR ---
Patient appears more comfortable, still agonal breathing but no grunting noted. Patients eyes are closed. Pt. did open eyes during repositioning but does not respond to any verbal stimuli. Nail beds are noticeably purple. Skin is warm to touch. No mottling of LE noted. RR 15. Will continue to monitor patient closely and ensure comfort.
--- NOTE | 2019-10-12 15:19 | NUR ---
PAGER ID: [phone] MESSAGE: [phone] Coni Florian has . Verified by 2 RN's. TOClaudy [phone]. Yenifer CHILD [phone]
--- NOTE | 2019-10-12 15:41 | NUR ---
RN IS TO DOCUMENT YES TO ALL APPLICABLE AREAS Pronouncement of : 1. Time Physician Notified: 151 2. Date of :10/12/19 3. Time of : 145 4. DNR/Withdraw life support documented:Yes 5. Monitor strip has been placed on chart: Yes 6. Assessment process is of one-minute duration and includes following criteria: a) Patient is unresponsive to all stimuli: Yes b) Pupils fixed and non-reactive: Yes c) Auscultation of precordium reveals absence of heart tones: Yes d) Auscultation of lungs reveals absence of breath sounds:Yes e) Absence of blood pressure / all vital signs: Yes f) QRS complexes are not present on monitor / EKG strip: Yes g) Pacer spikes without capture: N/A 4. Comments:
--- NOTE | 2019-10-12 15:43 | NUR ---
Patients son Justo and Patients daughter Azucena notified of the patients passing. [facility] network notified, patient is not a candidate. Burce and Roland in [place] notified and that the patient tested positive for Covid-19. notified. Patient will not be picked up until cleared by administration and at that time nursing will call Pb. Family was thankful for the care provided.
--- NOTE | 2019-10-12 18:12 | NUR ---
Patient was picked up by Pb at 1814.
== END 2019-10-12 18:00 | disposition expired | DRG 871 ==
LOC: ER 14:20 → ED HOLD 17:09 → PCU 3S 19:14
PROVIDERS: ADMIT Internal Medicine; ATTEND Internal Medicine
DX: A41.9 Sepsis, unspecified organism (principal); J96.01 Acute respiratory failure with hypoxia; J12.89 Other viral pneumonia; J44.0 Chronic obstructive pulmonary disease with (acute) lower respiratory infection; I13.0 Hypertensive heart and chronic kidney disease with heart failure and stage 1 through stage 4 chronic kidney disease, or unspecified chronic kidney disease; N18.3 Chronic kidney disease, stage 3 (moderate); B97.29 Other coronavirus as the cause of diseases classified elsewhere; F02.80 Dementia in other diseases classified elsewhere, unspecified severity, without behavioral disturbance, psychotic disturbance, mood disturbance, and anxiety; G30.9 Alzheimer's disease, unspecified; I25.10 Atherosclerotic heart disease of native coronary artery without angina pectoris; Z51.5 Encounter for palliative care; Z66 Do not resuscitate; Z95.2 Presence of prosthetic heart valve; E78.5 Hyperlipidemia, unspecified
CPT/HCPCS: 36415; 71045; 80048; 80053; 81001; 82948; 83036; 83605; 83735; 84145; 85025; 85610; 85730; 87040; 87081; 87502; 87503; 87635; 93005; 94640; 94760; 96365; 99285; G0378; J0456; J0692; J0696; J1644; J1815; J1956; J2270; J2405; J3490; J7030